=== PATIENT | female | born 1950 | race Caucasian/White ===

== ENCOUNTER → 2016-05-24 | Day surgery (SDC) | payer OTHER ==
[2016-05-18 08:55] VITALS: Ht 167.6 cm; Wt 72.7 kg
[~2016-05-24] VITALS: Ht 167.6 cm; Wt 72.7 kg
[~2016-05-24] MED LIST: ESCI10TA17 PO; FENTANYL CITRATE INJ 50 MCG/1 ML 2 ML VIAL ONE; LIDOCAINE HCL 2% 2 ML VIAL (20MG/ML) ONE; OMEP20TA14 PO; PROPOFOL IV EMULSION 10 MG/ML 20 ML VIAL IV ONE; SODIUM CHLORIDE 0.9% 500ML 500 ML IV ONE
--- NOTE | 2016-05-24 08:46 | Endo History and Physical ---
History & Physical Date of Service: May 24, 2016. Chief Complaint: screening Referring Physician: Dr. Joe Ireland History of Present Illness screening Past Surgical History Hx Cardiac Surgery: No Hx Internal Defibrillator: No Hx Pacemaker: No Hx Abdominal Surgery: Yes (PANCREATIC STENTS PLACED, PANNICULECTOMY, TUBAL LIGATION) Hx of Implantable Prosthesis: No Hx Post-Op Nausea and Vomiting: No Hx Cancer Surgery: No Hx Thoracic Surgery: No Hx Orthopedic: No Hx Urinary Tract Surgery: No Family History None Social History Smoking Status: Former Smoker Hx Substance Use: No Hx Alcohol Use: Yes (1 DRINK DAILY) Allergies Coded Allergies: No Known Allergies (Verified , 05/24/16) Current Medications Reported Home Medications Medications Dose Route/Sig Max Daily Dose Days Date Category Prilosec Otc (Omeprazole Magnesium) 20 Mg Tab 20 Mg PO QAM 05/18/16 Reported Lexapro (Escitalopram Oxalate) 10 Mg Tab 10 Mg PO HS 09/03/14 Reported Vital Signs Weight (Kilograms): 72.73 Height (Feet): 5 Height (Inches): 6 Date Time Temp Pulse Resp B/P Pulse Ox O2 Delivery O2 Flow Rate FiO2 05/24/16 08:12 36.4 68 20 145/87 95 Room Air Physical Exam General Appearance: no apparent distress Respiratory/Chest: Auscultation: breath sounds normal Cardiovascular: Heart Auscultation: RRR Abdomen: Inspection & Palpation: soft Assessment and Plan Screening - colonoscopy
--- NOTE | 2016-05-24 09:22 | Discharge Instructions ---
Endoscopy Patient Instructions Date / Procedure(s) Performed May 24, 2016. Colonoscopy Allergy Information Coded Allergies: No Known Allergies (Verified , 05/24/16) Discharge Date / Findings May 24, 2016. diverticulosis, hemorrhoids, polyp Provider Instructions Activity Restrictions - No exercising or heavy lifting for 24 hours. - Do not drink alcohol the day of the procedure. - Do not drive a car or operate machinery until the day after the procedure. - Do not make any important decisions or sign important papers in 24 hours after the procedure. Following Day: - Return to full activity which may include returning to work/school. Diet Start your diet with liquids and light foods (jello, soup, juice, toast). Then eat your usual diet if not nauseated. Treatment For Common After Affects For mild abdominal pain, bloating, or excessive gas: - Rest - Eat lightly - Lie on right side Follow-Up Information Follow-up with Dr. Joe Ireland as scheduled Anesthesia Information What You Should Know You have had a procedure that required some medicine to reduce anxiety and discomfort. This treatment is called moderate sedation. After receiving the treatment, you may be sleepy, but you will be able to breathe on your own. The effects of the treatment may last for several hours. Follow these instructions along with Activity/Diet recommendations noted above: * Do NOT do anything where dizziness or clumsiness would be dangerous. * Rest quietly at home today, then you can be up and about tomorrow. * Have a responsible person stay with you the rest of today. * You may have had an I.V. today. If so, you may take the dressing off later today. Recommendations Call your doctor if: * Trouble breathing * Continuous vomiting for more than 24 hours * Temperature above 101 degrees * Severe abdominal pain or bloating * Pain not relieved by pain medicine ordered * There is increased drainage or redness from any incision * A large amount of rectal bleeding greater than 2-3 tablespoons. (If you had a polyp/s removed or have hemorrhoids, a small amount of blood - from the rectum is to be expected.) * You have any unanswered questions or concerns. IN THE EVENT OF A SERIOUS EMERGENCY, GO TO THE NEAREST EMERGENCY ROOM Your discharge instructions were prepared by provider Joaquina Goldstein. Patient Instructions Signature Page Amber Mtz Patient (or Guardian) Signature/Date: I have read and understand the instructions given to me by my caregivers. Caregiver/RN/Doctor Signature/Date: The above-named patient and/or guardian has received patient instructions on this date. + Original Patient Signature Page (only) stays with chart. Please make copy for patient.
--- NOTE | 2016-05-24 09:25 | GI REPORT ---
Procedure Date: 05/24/2016 8:55 AM Procedure: Colonoscopy Indications: Screening for colorectal malignant neoplasm Medicines: See the Anesthesia note for documentation of the administered medications Complications: No immediate complications. Estimated Blood Loss: Estimated blood loss: none. Procedure: Pre-Anesthesia Assessment: - ASA Grade Assessment: II - A patient with mild systemic disease. After I obtained informed consent, the scope was passed under direct vision. Throughout the procedure, the patient's blood pressure, pulse, and oxygen saturations were monitored continuously. The scope was introduced through the anus and advanced to the terminal ileum. The colonoscopy was performed without difficulty. The patient tolerated the procedure well. The quality of the bowel preparation was good. Findings: The perianal exam findings include non-thrombosed external hemorrhoids. Multiple small and large-mouthed diverticula were found in the entire colon. A 12 mm polyp was found at 20 cm proximal to the anus. The polyp was pedunculated. The polyp was removed with a saline injection-lift technique using a hot snare. Resection and retrieval were complete. The exam was otherwise without abnormality. Impression: - Non-thrombosed external hemorrhoids found on perianal exam. - Diverticulosis in the entire examined colon. - One 12 mm polyp at 20 cm proximal to the anus, removed using injection-lift and a hot snare. Resected and retrieved. - The examination was otherwise normal. Recommendation: Repeat exam in 1-3 years pending review of pathology. - Discharge patient to home. Joaquina Cobb M.D. Joaquina Cobb MD 05/24/2016 9:24:57 AM This report has been signed electronically. Note Initiated On: 05/24/2016 8:55 AM I attest to the content of the Intraoperative Record and orders documented therein, exceptions below
--- NOTE | 2016-05-24 09:33 | Anesthesiology Progress Note ---
Anesthesia Post Op Note Date & Time May 24, 2016 at 09:33 Vital Signs Pain Intensity: 0 Vital Signs Past 12 Hours Date Time Temp Pulse Resp B/P Pulse Ox O2 Delivery O2 Flow Rate FiO2 05/24/16 09:19 67 18 141/75 96 Room Air 05/24/16 08:12 36.4 68 20 145/87 95 Room Air Notes Mental Status: alert / awake / arousable, participated in evaluation Pt Amnestic to Procedure: Yes Nausea / Vomiting: adequately controlled Pain: adequately controlled Airway Patency, RR, SpO2: stable & adequate BP & HR: stable & adequate Hydration State: stable & adequate Anesthetic Complications: no major complications apparent
[2016-05-24 09:49] VITALS: BP 139/71; PULSE 56; O2SAT 99
== END | disposition home or self-care (01) ==
LOC: C.GI 07:53
PROVIDERS: ATTEND Internal Medicine Gastroenterology
DX: Z12.11 Encounter for screening for malignant neoplasm of colon (principal); D12.5 Benign neoplasm of sigmoid colon; K57.50 Diverticulosis of both small and large intestine without perforation or abscess without bleeding; K64.4 Residual hemorrhoidal skin tags; Z87.891 Personal history of nicotine dependence; Z98.890 Other specified postprocedural states; Z98.51 Tubal ligation status

== ENCOUNTER → 2017-01-26 | Outpatient (CLI) | payer OTHER ==
[~2017-01-26] MED LIST changes: -FENTANYL CITRATE INJ 50 MCG/1 ML 2 ML VIAL ONE; -LIDOCAINE HCL 2% 2 ML VIAL (20MG/ML) ONE; -PROPOFOL IV EMULSION 10 MG/ML 20 ML VIAL IV ONE; -SODIUM CHLORIDE 0.9% 500ML 500 ML IV ONE
--- NOTE | 2017-01-26 15:37 | MAMMOGRAPHY REPORT ---
BILATERAL DIGITAL SCREENING MAMMOGRAM WITH CAD: 01/26/2017 CLINICAL HISTORY: Routine screening. Patient has no complaints. TECHNIQUE: Current study was also evaluated with a Computer Aided Detection (CAD) system. Bilateral CC and MLO views were obtained. COMPARISON: Comparison is made to exams dated: 01/21/2016 mammogram, 01/18/2015 mammogram, 01/15/2014 mammogram, 12/12/2013 mammogram, 12/06/2012 mammogram, and 06/04/2012 mammogram - [facility]. BREAST COMPOSITION: The tissue of both breasts is heterogeneously dense, which may obscure small mas ses. FINDINGS: No suspicious masses, calcifications, or areas of architectural distortion are noted in ei ther breast. There has been no significant interval change compared to prior exams. A biopsy marker clip is again noted in the right breast. IMPRESSION: ACR BI-RADS CATEGORY 2: BENIGN There is no mammographic evidence of malignancy. A 1 year screening mammogram is recommended. The pa tient will receive written notification of the results. Approximately 10% of breast cancers are not detected with mammography. A negative mammographic report should not delay biopsy if a clinically suggestive mass is present. Caty Caba M.D. /:01/26/2017 12:03:27 Pharmacy Stock Clerk: Cierra JOHNSON(Yash)(Briseyda)([place]), [facility] letter sent: Normal 1/2 BI-RADS Code: ACR BI-RADS Category 2: Benign
== END | disposition home or self-care (01) ==
LOC: C.MAMM 09:08
DX: Z12.31 Encounter for screening mammogram for malignant neoplasm of breast (principal)

== ENCOUNTER 2018-11-29 10:03 | Inpatient (IN) ==
--- NOTE | 2018-11-04 14:13 | PAT Medication Instructions ---
Medication Instructions Date of Service November 04, 2018 Home Medications escitalopram oxalate 10 mg PO HS Take morning of surgery NOTHING TO EAT OR DRINK AFTER MIDNIGHT Take evening before surgery escitalopram oxalate 10 mg PO HS Other Notes If you have any questions please call us at [phone] or [phone] or [phone] or [phone]
--- NOTE | 2018-11-04 14:20 | Anesthesiology Consultation ---
Date of Service November 04, 2018 Assessment & Plan (1) Encounter for pre-operative examination: - No previous anesthesia records re: intubation Chart Review Chart Review: Patient seen in Pre Admission Testing Consults Requested none Teaching & Discussion Pre-Anesthesia Teaching/Discussion Notes: Instructed NPO after midnight before surgery, except medications with 15 cc of water. Medication instructions provided according to the PAT guidelines. History Surgery Operation Date: 11/29/18 12:30 Proposed Procedures p Left Reverse Total Shoulder Arthroplasty - Francis Blue DO Height/Weight Height: 5 ft 6 in Weight: 73.2 kg Allergies Allergy/AdvReac Type Severity Reaction Status Date / Time No Known Allergies Allergy Verified 10/28/18 10:13 Medications Home Medications Medication Instructions Recorded Confirmed Last Taken escitalopram oxalate 10 mg PO HS 10/28/18 10/28/18 Unknown Past Medical History Medical History Diastolic dysfunction Pancreatic cyst Parkinson disease PERIODIC HAND TREMORS, DIFFICULTY WRITING Tendon tear LEFT SHOULDER - CURRENT ISSUE Exercise / Class Metabolic Activity III < 4 Walking/Shop/Light housework ([place], works out 3 times a week as able. Able to climb FOS. Denies CP or SOB with activity. ) Past Surgical History Surgical History History of ERCP Hx of abdominoplasty Hx of tonsillectomy Past Anesthesia History No Hx of Anesthesia Complications and No Family Hx of Anesthesia Complications History of PONV No Hx of PONV and No Hx of Motion Sickness Social History Smoking Status: Former smoker Smoking cigarettes per day: 1/2 ppd x 15 years Do You Dip or Chew Tobacco: No Smoking End Date: 35 YR Hx Alcohol Use: Yes Alcohol type: hard liquor alcohol intake frequency: 0-2 drinks per day Hx Substance Use: No Review of Systems Patient denies chest pain, shortness of breath, dyspnea on exertion, joint pain, reflux, cough, wheezing, palpitations. +Joint Pain (Shoulder) Physical Exam Vital Signs BP: 146/86 P: 67 R: 16 T: 98.2 SPO2: 96% on RA ENMT Thyromental Distance: < 3.5 Finger Breadths (3) Mallampati Class: II Neck normal visual inspection; neck extension not limited Respiratory normal respiratory effort Auscultation: lungs clear to auscultation bilaterally Cardiovascular Rate/Rhythm: regular rate and regular rhythm Heart Sounds: no murmur Vessels: no carotid bruit Neurologic moves all extremities Psychiatric A+Ox3, euthymic affect Testing Laboratory Results 11/04/18 14:35 11/04/18 14:35 Blood Type A Positive 11/04/18 14:35 Antibody Screen NEGATIVE 11/04/18 14:35 Electrocardiogram Date: 08/28/18 Findings: + NSR @ (69) and + no change from (10/29/07) Possible left atrial enlargement LVH Chest X-Ray Date: 11/04/18 Findings: + NAD FINDINGS: Cardiac silhouette mildly enlarged. Lungs and pleural spaces clear. Scoliotic curvature of the thoracolumbar junction. Upper abdomen normal. IMPRESSION: 1. Mild cardiomegaly. No other convincing evidence of acute cardiopulmonary disease. Echocardiogram Date: 09/24/18 EF: 59% LV Function: normal RWMA: + none Other Findings: + diastolic dysfunction (Grade I) Valvular Disease: + no significant valvular disease Findings suggest a possible pericardial cyst adjacent to RV free wall, best visualized in parasternal long axis views. No pericardial effusion is present.
--- NOTE | 2018-11-04 15:05 | XRay Report ---
XR chest Pre-admission PA/Lat CLINICAL HISTORY: 67 years-old Female presenting with preoperative evaluation. TECHNIQUE: PA and lateral views of the chest were obtained. COMPARISON: 09/03/2014. FINDINGS: Cardiac silhouette mildly enlarged. Lungs and pleural spaces clear. Scoliotic curvature of the thorac olumbar junction. Upper abdomen normal. IMPRESSION: 1. Mild cardiomegaly. No other convincing evidence of acute cardiopulmonary disease. Electronically signed by: Eugene Najera M.D. 11/04/2018 3:03 PM
[2018-11-04 16:19] LABS: Basophils # (auto) 0.03 K/uL (0-0.2); Basophils % (auto) 0.5 %; Eosinophils # (auto) 0.09 K/uL (0-0.5); Eosinophils % (auto) 1.4 %; Hematocrit (blood only) 38.6 % (37-47); Hemoglobin 13.3 g/dL (12.0-16.0); Immature Granulocytes # (auto) 0.01 K/uL (0.00-0.02); Immature Granulocytes % (auto) 0.2 %; Lymphocytes # (auto) 2.24 K/uL (1.2-3.4); Mean Corpuscular Hgb Conc 34.5 g/dL (32-36); Mean Corpuscular Volume 92.8 fL (80-100); Mean Platelet Volume 9.9 fL (7.4-10.4); Monocytes # (auto) 0.65 K/uL (0.11-0.59); Monocytes % (auto) 10.4 %; Neutrophils # (auto) 3.21 K/uL (1.4-6.5); Neutrophils % (auto) 51.5 %; Platelet Count 216 K/uL (130-400); RDW Coefficient of Variation 13.1 % (11.5-14.5); RDW Standard Deviation 44.4 fL (36.4-46.3); Red Blood Count 4.16 M/uL (4.2-5.4); White Blood Count 6.23 K/uL (4.8-10.8)
[2018-11-04 16:26] LABS: BUN Creatinine Ratio 22.9 (10-20); Calcium 9.4 mg/dl (8.5-10.1); Creatinine Clr Calc Pharmacy 88.7 ml/min; Est GFR (African American) 107.6; Est GFR (Non-African American) 92.8
--- NOTE | 2018-11-28 15:10 | History & Physical Report ---
Date of Service November 28, 2018 Assessment & Plan (1) Rotator cuff arthropathy of left shoulder: We will proceed with a left reverse shoulder arthroplasty. Postoperatively she will be placed in a sling and kept overnight in the hospital for postoperative medical management. She plans to use [facility] upon discharge. Present on Admission?: Yes History of Present Illness Chief Complaint: Rotator cuff arthropathy of the left shoulder Primary Care Provider: Juan Antonio Worthington MD Amber is a pleasant 67-year-old female who is been dealing with a 3-year history of increasing left shoulder pain. My clinical examination have been diagnostic for rotator cuff arthropathy of the left shoulder. After failing years of conservative treatment, including multiple injections, she has elected proceed with a left reverse shoulder arthroplasty. Allergies Allergy/AdvReac Type Severity Reaction Status Date / Time No Known Allergies Allergy Verified 10/28/18 10:13 Home Medications Home Medications Medication Instructions Recorded Confirmed Type escitalopram oxalate 10 mg PO HS 10/28/18 10/28/18 History Past Med/Surg History Medical History Diastolic dysfunction Pancreatic cyst Parkinson disease PERIODIC HAND TREMORS, DIFFICULTY WRITING Tendon tear LEFT SHOULDER - CURRENT ISSUE Surgical History History of ERCP Hx of abdominoplasty Hx of tonsillectomy Social History Preferred Language: Turkish Communication Ability: Effective Beliefs That Will Affect Care: None Current Living Situation: Spouse Feels Safe at Home: Yes Smoking Status: Former smoker Cigarettes Per Day: 1/2 ppd x 15 years ; Do You Dip or Chew Tobacco: No ; Smoking End Date: 35 YR ; Second Hand Exposure: No ; Hx Alcohol Use: Yes Alcohol type: hard liquor Hx Substance Use: No Review of Systems All systems reviewed & are unremarkable except as noted in HPI & below Physical Exam Constitutional: WD/WN, vitals as above Eyes: PERRL, conjunctivae normal, anicteric sclerae ENMT: external ear and nose normal, oropharynx normal Neck: trachea midline, no thyromegaly Respiratory: normal respiratory effort Cardiovascular: RRR, no murmur, no edema Gastrointestinal (Abdomen): normal bowel sounds, soft, nontender, no hepatosplenomegaly Musculoskeletal: Physical examination of the left shoulder reveals decreased range of motion and significant weakness. There is tenderness palpation along the anterior glenohumeral joint line. The right upper extremity is neurovascularly intact. Psychiatric: A+Ox3, euthymic affect Results & Data Diagnostic Findings Radiographs of the left shoulder show some signs of osteoarthritis with blunting of the greater tuberosity and some superior migration of the humeral head on the glenoid.
--- NOTE | 2018-11-29 09:44 | History & Physical Bridge Note ---
Date of Service November 29, 2018 History & Physical Bridge Note I have examined the patient, reviewed the History & Physical and in the interval since the performance of the History & Physical I have noted the following changes of clinical significance: no changes noted
[~2018-11-29 10:03] MED LIST changes: +ACETAMINOPHEN 500 MG TAB PO SCH; +BUPIVACAINE 0.5 % 5 MG/1 ML PF 10ML VIAL ONE; +CEFAZOLIN 1000MG 1,000 MG/7.5 ML SYR IV SCH; -ESCI10TA17 PO; +FAMOTIDINE 20 MG TAB PO SCH; +GABAPENTIN 300 MG CAP PO SCH; +LR 15ML/HR IV SCH; +LR 60ML/HR IV SCH; -OMEP20TA14 PO; +ROPIVACAINE 0.5% 5 MG/ML 30 ML VIAL ONE; +ROPIVACAINE 0.5% HCL/PF 150 MG, BUPIVACAINE 0.5% MPF 30 ML, EPINEPHrine 30MG/30ML (OR U... INSTIL SCH; +TRANEXAMIC ACID 1,000 MG **IV Intra-op IV SCH; +TRANEXAMIC ACID 1,000 MG **IV Pre-op IV SCH
[2018-11-29] MEDS ORDERED: MIDAZOLAM HCL 1 MG/ML 2ML VIAL ONE (10:12)
[2018-11-29] MEDS ORDERED: fentaNYL citrate 100 MCG/2 ML VIAL ONE (10:13)
[2018-11-29] MEDS ORDERED: KETAMINE HCL INJ 50 MG/ML 10 ML VIAL ONE (10:13)
[2018-11-29] MEDS ORDERED: ONDANSETRON INJ 2 MG/ML 2 ML VIAL IV PRN ×2 (10:19→14:25)
[2018-11-29] MEDS ORDERED: ePHEDrine sulfate 50 MG/ML AMP IV PRN (10:19)
[2018-11-29] MEDS ORDERED: ATROPINE SULFATE 0.1 MG/ML 10ML SYR IV PRN (10:19)
[2018-11-29] MEDS ORDERED: fentaNYL citrate 100 MCG/2 ML VIAL IV PRN (10:19)
[2018-11-29] MEDS ORDERED: ORTHO JOINT ANESTHETIC ONE (10:23)
[2018-11-29] MEDS ORDERED: GLYCOPYRROLATE 0.2 MG/ML VIAL ONE (12:37)
[2018-11-29] MEDS ORDERED: LIDOCAINE HCL 2% 2 ML VIAL/AMP(20MG/ML) INFIL ONE (12:37)
[2018-11-29] MEDS ORDERED: DEXAMETHASONE SOD INJ 4 MG/ML VIAL ONE (12:37)
[2018-11-29] MEDS ORDERED: ROCURONIUM BROMIDE 10 MG/ML 5 ML VIAL ONE (12:37)
[2018-11-29] MEDS ORDERED: PROPOFOL IV EMULSION 10 MG/ML 20 ML VIAL IV ONE (12:37)
[2018-11-29] MEDS ORDERED: ONDANSETRON INJ 2 MG/ML 2 ML VIAL ONE (12:37)
[2018-11-29] MEDS ORDERED: NEOSTIGMINE METHYLSULFATE 5 MG/5 ML SYR ONE (12:37)
--- NOTE | 2018-11-29 12:47 | Operative Report ---
Post Operative Report Pre & Post Diagnosis Operation Date: 11/29/18 12:10 Pre-Op Diagnosis: Cuff tear arthropathy of the left shoulder Post-Op Diagnosis: Cuff tear arthropathy of the left shoulder Procedure Operation Date: 11/29/18 12:10 Actual Procedures p Left Reverse Total Shoulder Arthroplasty(Left) - Francis Blue DO Surgeon Francis Blue DO Land [employer] Manager Francis Farias PAC Estimated Blood Loss 150 Findings Consistent with Post-Op Diagnosis Specimens Left humeral head Complications none Disposition Disposition: Recovery Room Indications Amber is a pleasant 67-year-old female who presented my office with a 3-year history of left shoulder pain. MRI and clinical examination were diagnostic for cuff arthropathy of the left shoulder. After failing conservative treatment, she elected to proceed with a left reverse shoulder arthroplasty. Description of Procedure Implants used: I used a [employer]omet Comprehensive reverse total shoulder arthroplasty system with a size 8 press fit mini humeral stem, a +6 offset standard humeral tray and a standard humeral bearing, a 25 mm mini baseplate with a 6.5 mm central screw and superior and inferior locking screws, and a size 36 mm eccentric glenosphere. The patient arrived at [facility] for the above procedure. There were seen in the preoperative holding area and the operative extremity was identified and signed. They were given a preoperative antibiotic and an interscalene nerve block. They were taken back to the operating room, laid on table in supine position, and put under general anesthesia. They were then put into the beachchair position. The shoulder was then prepped and draped in sterile fashion. A timeout was done and the patient in the operative extremity was properly identified. A deltopectoral approach was used. Dissection was taken down through the fascia and the deltoid was retracted laterally and the conjoined tendon was retracted medially. The anterior shoulder was exposed. The long head of the biceps tendon was tenodesed to the upper border of the pectoralis major. The subscapularis was then released off the lesser tuberosity with a centimeter of cuff tissue remaining. The inferior capsule was released and the humeral head was dislocated. A canal finding reamer was sent down the center of the humeral canal. Sequential reaming up to a size 8 reamer was done. Off that reamer, a proximal humeral resection guide was placed. The proximal humerus was resected at 135 of inclination and 25 of retroversion. Osteophytes were then removed and the glenoid was exposed. Time was spent doing a complete capsular and labral release. The glenoid guide was then placed in the inferior aspect of the glenoid. A 3.2 mm Steinmann pin was then placed into the glenoid vault at 10 of inclination. The glenoid baseplate was then reamed. The final size 25 mm mini baseplate was then impacted in the place. A 6.5 mm central screw was then placed followed by superior and inferior locking screws. A 36 mm eccentric glenoid sphere was then impacted into place. Surrounding soft tissues were then injected with 100 cc an orthopedic pain control cocktail. The proximal humerus was then exposed. Sequential broaching of the humerus up to a size 8 broach was done. Off that broach a +6 offset standard humeral tray was trialed. The shoulder was then reduced, brought through a full range of motion and felt to be stable. The shoulder was then dislocated and the broach was removed. The final size 8 mini press-fit humeral stem was then impacted into place. A standard humeral bearing was then snapped onto a +6 offset standard humeral tray. The humeral tray was then impacted onto the humeral stem. The shoulder was once again reduced, brought through a full range of motion and felt to be stable. The subscapularis was then tenodesed back to the lesser tuberosity with transosseous FiberWire sutures and side to side sutures with the arm in 45 of external rotation. A dilute betadyne lavage was then done for 3 minutes. The joint was then irrigated with normal saline solution. Hemostasis was obtained. The skin was then closed with 2-0 Vicryl, 3-0V lock suture, and michael. A soft dressing and a regular arm sling was placed. The patient was then extubated and transferred to a hospital bed. They were taken to the postanesthesia care unit in stable condition. They tolerated the procedure well. I attest to the content of the Intraoperative Record and any orders documented therein. Any exceptions are noted below.
--- NOTE | 2018-11-29 13:51 | Anesthesiology Progress Note ---
Date of Service November 29, 2018 Anesthesia Post Procedure Vital Signs Vital Signs: Temp Pulse Pulse Resp BP Pulse Ox 11/29/18 13:50 98.1 F 67 15 153/87 H 100 11/29/18 13:40 71 13 154/83 H 100 11/29/18 13:30 74 14 166/86 H 100 11/29/18 13:20 83 12 162/88 H 100 11/29/18 13:14 96.8 F L 80 16 170/76 H 100 11/29/18 10:27 98.6 F 67 18 175/85 H 98 Transfer of Care Handoff Completed per policy Notes Mental Status: alert / awake / arousable and participated in evaluation Patient Amnestic to Procedure: Yes Nausea / Vomiting: adequately controlled Pain: adequately controlled Airway Patency, RR, SpO2: stable & adequate BP & HR: stable & adequate Hydration State: stable & adequate Anesthetic Complications: no major complications apparent and Pt Satisfied with anesthetic care
--- NOTE | 2018-11-29 13:58 | XRay Report ---
XR shoulder LT min 2V routine CLINICAL HISTORY: Post shoulder surgery COMPARISON STUDY: None. FINDINGS: Status post left reverse total shoulder arthroplasty. The hardware appears intact. Skin sta ples are in place. No fracture or dislocation within the left shoulder. IMPRESSION: Status post reverse left total shoulder arthroplasty. No evidence for hardware complicat ion. Electronically signed by: Tomer Cristobal M.D. 11/29/2018 1:56 PM
[2018-11-29] MEDS ORDERED: METOCLOPRAMIDE HCL INJ 5 MG/ML 2 ML VIAL IV PRN (14:25)
[2018-11-29] MEDS ORDERED: HYDROmorphone INJ 0.5 MG/0.5 ML SYR IV PRN (14:25)
[2018-11-29] MEDS ORDERED: MAGNESIUM HYDROXIDE SUSP 30 ML UDC PO PRN (14:25)
[2018-11-29] MEDS ORDERED: SODIUM CHLORIDE 0.9% 1000ML 1,000 ML IV SCH (14:25)
[2018-11-29] MEDS ORDERED: BISACODYL 10 MG SUPP PR PRN (14:25)
[2018-11-29] MEDS ORDERED: NALOXONE HCL 0.4 MG/1 ML VIAL/CARP IV PRN (14:25)
[2018-11-29] MEDS: KETOROLAC TROMETHAMINE 15 MG/ML VIAL IV SCH ×2 (15:19→21:30)
[2018-11-29] MEDS: ACETAMINOPHEN 500 MG TAB PO SCH (17:52)
[2018-11-29] MEDS: CEFAZOLIN 2000MG 2,000 MG/15 ML SYR IV SCH (17:54)
[2018-11-29] MEDS ORDERED: ESCITALOPRAM OXALATE 10 MG TAB PO SCH (21:00)
[2018-11-29] MEDS ORDERED: SENNA 8.6 MG TAB PO SCH (21:00)
[2018-11-29] MEDS: DOCUSATE SODIUM 100 MG CAP PO SCH (21:28)
[2018-11-29] MEDS ORDERED: COUGH DROP (SUGAR FREE) LOZ 24 LOZ/1 BOX BUCCAL PRN (21:52)
[2018-11-30] MEDS: OXYCODONE HCL IR 5 MG TAB (IMMEDIATE RELEASE) PO PRN ×2 (01:30→11:04)
[2018-11-30] MEDS: CEFAZOLIN 2000MG 2,000 MG/15 ML SYR IV SCH (03:36)
[2018-11-30] MEDS: KETOROLAC TROMETHAMINE 15 MG/ML VIAL IV SCH ×2 (03:37→08:35)
[2018-11-30] MEDS: ACETAMINOPHEN 500 MG TAB PO SCH (05:45)
[2018-11-30 05:58] LABS: Basophils # (auto) 0.01 K/uL (0-0.2); Basophils % (auto) 0.1 %; Hematocrit (blood only) 35.9 % (37-47); Hemoglobin 11.8 g/dL (12.0-16.0); Immature Granulocytes # (auto) 0.06 K/uL (0.00-0.02); Immature Granulocytes % (auto) 0.4 %; Lymphocytes # (auto) 1.64 K/uL (1.2-3.4); Lymphocytes % (auto) 11.1 %; Mean Corpuscular Hemoglobin 31.4 pg (25-34); Mean Corpuscular Hgb Conc 32.9 g/dL (32-36); Mean Corpuscular Volume 95.5 fL (80-100); Mean Platelet Volume 9.9 fL (7.4-10.4); Monocytes # (auto) 1.33 K/uL (0.11-0.59); Neutrophils # (auto) 11.69 K/uL (1.4-6.5); Neutrophils % (auto) 79.4 %; Platelet Count 185 K/uL (130-400); RDW Coefficient of Variation 12.9 % (11.5-14.5); RDW Standard Deviation 44.8 fL (36.4-46.3); Red Blood Count 3.76 M/uL (4.2-5.4); White Blood Count 14.73 K/uL (4.8-10.8)
[2018-11-30 06:33] LABS: BUN Creatinine Ratio 14.6 (10-20); Calcium 8.6 mg/dl (8.5-10.1); Creatinine Clr Calc Pharmacy 61.8 ml/min; Est GFR (African American) 76.7; Est GFR (Non-African American) 66.2; Potassium 4.1 mmol/L (3.5-5.1)
--- NOTE | 2018-11-30 07:55 | Orthopedic Progress Note ---
Date of Service November 30, 2018 Assessment & Plan (1) Rotator cuff arthropathy of left shoulder: Overall she is doing very well. She is not having much pain in the left shoulder. She will be seen by physical therapy this morning for range of motion exercises and ambulation. She can be discharged home later this morning. She will follow-up with orthopedics in 2 weeks. Present on Admission?: Yes Subjective Lakesha was seen and examined at bedside this morning. Overall she is doing very well. She is not having much pain in the left shoulder. She is happy with her progress to this point. She has no complaints. Physical Exam Musculoskeletal: On physical examination of the left shoulder, the dressing is clean and dry. She is wearing her sling as instructed. Her radial, median, and ulnar nerves are checked and intact. Her axillary nerve was not checked yet. Results & Data Vital Signs (Past 12 Hours) Vital Signs Temp Pulse Resp BP Pulse Ox 11/30/18 06:57 37.0 C 68 18 125/71 94 11/30/18 03:42 36.8 C 60 14 114/63 93 11/29/18 23:10 36.8 C 64 14 119/73 92 11/29/18 20:15 36.5 C 78 16 116/73 93 Laboratory Results H & H 11/04/18 11/30/18 Range/Units 14:35 05:31 Hgb 13.3 11.8 L (12.0-16.0) g/dL Hct 38.6 35.9 L (37-47) % Diagnostic Findings Postoperative x-rays of the left shoulder show the prosthesis to be in anatomic alignment without any evidence of fracture, dislocation, or loosening. PG Care Time/CCT Total # of Minutes Spent Total Time Spent with Patient: Total time spent is greater than 50% in coordination of care (as documented) at patient's floor/unit and/or counseling patient:
--- NOTE | 2018-11-30 07:56 | Discharge Summary ---
Date of Service November 30, 2018 Admission HPI Per Admitting Provider Amber is a pleasant 67-year-old female who is been dealing with a 3-year history of increasing left shoulder pain. My clinical examination have been diagnostic for rotator cuff arthropathy of the left shoulder. After failing years of conservative treatment, including multiple injections, she has elected proceed with a left reverse shoulder arthroplasty. Principal Diagnosis Left reverse shoulder arthroplasty Discharge Data Allergies Allergy/AdvReac Type Severity Reaction Status Date / Time No Known Allergies Allergy Verified 11/29/18 10:24 Consultations 11/29/18 14:25 Consult Case Management - Discharge Planning Routine Procedures Performed Operation Date: 11/29/18 12:10 Actual Procedures p Left Reverse Total Shoulder Arthroplasty(Left) - Francis Blue DO Ordered Studies 11/29/18 05:00 US - OR guided needle placemen Routine Hospital Course (1) Rotator cuff arthropathy of left shoulder: On November 29, 2018 Amber arrived at [facility] and underwent a left reverse shoulder arthroplasty without complication. She had a general anesthetic and a left interscalene nerve block. Postoperatively she was placed in a sling and discharged to general orthopedic floors. Her hospital course was uneventful. On postop day #1 her H&H was stable and her pain was well controlled. She was able to participate well with physical therapy doing range of motion exercises and ambulation. She was then discharged home with physical therapy. She will follow-up with orthopedics in 2 weeks. Total Time Total Time Spent Total Time Spent (In Minutes): 20 Discharge Plan Discharge Items Patient Disposition: Home - Home Health Services Reason For Visit: LEFT SHOULDER DEGENERATIVE JOINT DISEASE Discharge Diagnosis: Left reverse shoulder arthroplasty Activity: As commented below Non-emergency contact: Surgeon Call non-emergency contact if: your wound has increased redness and your wound has increased drainage Follow-up/Referrals: Juan Antonio Worthington MD [Primary Care Provider] - Diet: Regular Addtl Attending Provider Instructions: Activity and Therapy Recommendations: * If you are using [facility] then therapy will be provided at your home until they feel you have accomplished all of your goals. * If you are using [facility] then Physical Therapy will be provided until they feel you are ready to start Outpatient Physical Therapy. * If you are not using home therapy then Outpatient Physical Therapy should start about 3-5 days from your day of surgery. Therapy will last about 8-12 weeks * Wear your sling for 3 weeks, unless otherwise instructed. You may remove your sling to shower and to dress, but otherwise, you should be in your sling at all times, including while sleeping * The shoulder replacement is very stable and you can use your hand while in the sling * You were shown a series of exercises in the hospital. Do these exercises daily including the exercises you were shown in physical therapy. Medications: * Narcotic You will likely be sent home from the hospital with a prescription for the narcotic pain medication that worked best throughout your stay. * Other medications may be prescribed for specific circumstances. If you have any questions, please call the office at . * Resume previous home medications unless otherwise instructed Dressing Care: Leave the plastic dressing in place for 5 days. After 5 days you may remove the plastic dressing. If the incision is not draining then you may leave the michael open to air. If there is a little bit of drainage or if the michael are getting stuck on your clothing then cover the incision with a dry dressing. The michael will be removed at your 2 week follow-up appointment. Showering: You may shower with the plastic dressing in place. Let the shower spray hit the other shoulder. You can pat the plastic dry. If the dressing becomes wet underneath the plastic then simply remove the dressing. Keep the incision dry until you are 5 days out from the day of surgery. At that time you can shower with the michael exposed. Let the soapy shower water run over the michael and pat them dry. Do not scrub or soak the incision. Things To Watch For: * Drainage from the incision site that occurs more than one week after your surgery. * Increased redness at the incision site. * Fever above 102 degrees Fahrenheit. * Unusual chest pain or shortness of breath. * Call [facility] at with any of the above problems Follow-Up Visit: Follow-up with Dr. Blue 2-3 weeks after your day of surgery. An appointment was probably scheduled when you signed-up for surgery in the office. If you have any questions call Office Instructions: More detailed instructions as well as Frequently Asked Questions were provided in a folder by our office when you signed-up for surgery. Please review these instructions when you get home. If you have any further questions or concerns, please feel free to call the office at [phone] Pending Studies at Discharge: No Stand-Alone Forms: My [facility] Medications and DC Order Prescriptions: New oxycodone 5 mg Tablet 5 mg PO Q4H PRN (Reason: pain) Qty: 30 RF: 0 Continued escitalopram oxalate 10 mg Tablet 10 mg PO HS RF: 0 Discharge Orders: Discharge Order (Routine); Ordered 11/30/18 Ordered By: Francis Blue Admission Data Admit Date/Time: 11/29/18 13:19 Attending Provider: Francis Blue Admit Provider: Francis Blue Primary Care Provider: Juan Antonio Worthington
[2018-11-30] MEDS: DOCUSATE SODIUM 100 MG CAP PO SCH (08:35)
[2018-11-30] MEDS ORDERED: MULTIVITAMIN TAB PO SCH (09:00)
== END 2018-11-30 11:15 | disposition home health service (06) | DRG 483 ==
LOC: ASU 10:03 → 3E 13:19